=== PATIENT | female | born 1955 | race African-American/Black ===

== ENCOUNTER 2019-12-21 21:52 | Emergency (ER) | payer SELFPAY ==
[~2019-12-21] VITALS: Ht 171.4 cm; Wt 80.7 kg
[2019-12-21] MEDS ORDERED: KETOROLAC TROMETHAMINE 30 MG/ML VIAL IV STA (22:49)
--- NOTE | 2019-12-21 22:56 | Diagnostic Imaging Report ---
Exam: Left foot series, 3 views. Clinical History: Left foot swelling and pain Comparison: None. Findings: 3 views of the left foot. There is decreased bone mineralization. Negative for acute, displaced fracture or dislocation. Degenerative changes in the midfoot/hindfoot joints and medial cuneiform/first metatarsal joint. Very mild hallux valgus deformity. Posterior calcaneal enthesophyte. Mild soft tissue swelling in the dorsal aspect of the foot. Impression: 1. Mild soft tissue swelling in the dorsal aspect of the foot, without acute underlying bony abnormality. Signed by: Dr. Jimi Interiano M.D. on 12/21/2019 10:53 PM
[2019-12-21] MEDS ORDERED: KETOROLAC TROMETHAMINE 30 MG/ML VIAL ONE (22:59)
[2019-12-21] MEDS ORDERED: HYDROCODONE/APAP 5MG-325MG TAB ONE (23:00)
[2019-12-21] MEDS ORDERED: CLINDAMYCIN 600MG / 50ML 50 ML IV ONE ×2 (23:00)
[2019-12-21] MEDS ORDERED: PIPER-TAZ 3.375 GM 50 ML ONE (23:00)
[2019-12-21] MEDS ORDERED: SODIUM CHLORIDE FLUSH 10 ML SYR INJ PRN (23:00)
[2019-12-21] MEDS ORDERED: PIPER-TAZ 3.375 GM 50 ML IV ONE (23:00)
[2019-12-21] MEDS ORDERED: HYDROCODONE/APAP 5MG-325MG TAB PO ONE (23:00)
--- NOTE | 2019-12-21 23:39 | Emergency Department Note ---
History of Present Illnes History of Present Illness Chief Complaint: left foot pain History of Present Illness This is a 64 year old female. was doing well prior to this. 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 Onset (how long ago): week(s) (2) Location: left foot Quality: sharp Radiation: Reports non-radiation Severity: severe Duration (how long): week(s) Timing of current episode: constant Progression: unchanged Chronicity: new Context: Denies recent illness, Denies recent surgery, Denies recent immobilization, Denies recent travel, Denies trauma/injury, Denies new medications, Denies hx of DVT/PE, Denies non-compliance w/ medications Relieving factors: rest Exacerbating factors: movement Associated symptoms: Reports denies other symptoms Treatments prior to arrival: none Past Medical/Family History Physician Review I have reviewed the patient's past medical and family history. Any updates have been documented here. Past Medical History Recent Fever: No Clinical Suspicion of Infectio: No New/Unexplained Change in Ment: No Past Medical History: Hypertension, Diabetes Other Surgery: R-GROIN STENT Social History Smoking Cessation: Current every day smoker Alcohol Use: None Any Illegal Drug Use: No TB Exposure/Symptoms: No Physically hurt or threatened: No Other Any Pre-Existing Lines (PICC,: No Is patient up to date on immun: Yes Last Flu: 04/18 Last Pneumovax: NO Review of Systems Review of Systems Constitutional: Reports no symptoms EENTM: Reports no symptoms Cardiovascular: Reports no symptoms Respiratory: Reports no symptoms Gastrointestinal: Reports no symptoms Genitourinary: Reports no symptoms Musculoskeletal: Reports as per HPI Integumentary: Reports as per HPI Neurological: Reports no symptoms Psychological: Reports no symptoms Endocrine: Reports no symptoms Hematological/Lymphatic: Reports no symptoms Review of other systems: All other systems negative Physical Exam Related Data Triage Vital Signs Vital Signs Date Time Temp Pulse Resp B/P (MAP) Pulse Ox O2 Delivery O2 Flow Rate FiO2 12/21/19 22:12 97.8 86 18 194/77 100 Vital signs reviewed: Yes Physical Exam CONSTITUTIONAL Constitutional: Present well-developed, Present well-nourished HENT HENT: Present normocephalic, Present atraumatic, Present oropharynx clear/moist, Present nose normal HENT L/R: Present left ext ear normal, Present right ext ear normal EYES Eyes: Reports PERRL, Reports conjunctivae normal NECK Neck: Present ROM normal PULMONARY Pulmonary: Present effort normal, Present breath sounds normal CARDIOVASCULAR Cardiovascular: Present regular rhythm, Present heart sounds normal, Present capillary refill normal, Present normal rate GASTROINTESTINAL Abdominal: Present soft, Present nontender, Present bowel sounds normal GENITOURINARY Genitourinary: Present exam deferred SKIN Skin: Present warm, Present dry, Present erythema (left foot, swelling) MUSCULOSKELETAL Musculoskeletal: Present ROM normal NEUROLOGICAL Neurological: Present alert, Present oriented x 3, Present no gross motor or sensory deficits PSYCHOLOGICAL Psychological: Present mood/affect normal, Present judgement normal Results Laboratory Lab results reviewed: Yes (cbc/cmp nl EXCEPT BLOOD GLUCOSE = 275) Imaging Imaging results reviewed: Yes Impressions [place] [id number] Patient Name: ANDREA DONG MR #: [id number] : 1955 Age/Sex: 64/F Req #: [id number] Adm Physician: Ordered by: LAZARO LIVINGSTON Report #: [id number] Location: [facility] Room/Bed: Procedure: [id number] HOPD/FOOT 3 VIEW LT - HOPD Exam Date: 12/21/19 Exam Time: 2234 REPORT STATUS: Signed Exam: Left foot series, 3 views. Clinical History: Left foot swelling and pain Comparison: None. Findings: 3 views of the left foot. There is decreased bone mineralization. Negative for acute, displaced fracture or dislocation. Degenerative changes in the midfoot/hindfoot joints and medial cuneiform/first metatarsal joint. Very mild hallux valgus deformity. Posterior calcaneal enthesophyte. Mild soft tissue swelling in the dorsal aspect of the foot. Impression: 1. Mild soft tissue swelling in the dorsal aspect of the foot, without acute underlying bony abnormality. Signed by: Dr. Jennifer Pena M.D. 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 [id number] Assessment & Plan Final Impression: (1) Cellulitis of left foot (2) Hyperglycemia Depart Disposition: HOME, SELF-CARE Last Vital Signs Date Time Temp Pulse Resp B/P (MAP) Pulse Ox O2 Delivery O2 Flow Rate FiO2 12/21/19 22:12 97.8 86 18 194/77 100 Home Meds Active Scripts Tramadol Hcl (ULTRAM) 50 Mg Tablet, 50 MG PO Q4HR PRN for MODERATE PAIN (4-6), #20 TAB take after naproxen to control pain if need Prov:LAZARO LIVINGSTON 12/22/19 Ibuprofen (MOTRIN) 800 Mg Tab, 800 MG PO Q6H PRN for MODERATE PAIN (4-6), #40 Prov:LAZARO LIVINGSTON 12/22/19 Ciprofloxacin Hcl (CIPRO) 500 Mg Tablet, 500 MG PO Q12H, #28 TAB Prov:LAZARO LIVINGSTON 12/22/19 Sulfamethoxazole/Trimethoprim (BACTRIM DS TABLET) 1 Each Tablet, 1 TAB PO Q12H, #28 TAB Prov:LAZARO LIVINGSTON 12/22/19 Medications in the ED Ketorolac Tromethamine 30 mg STK-MED ONCE .ROUTE ; Start 12/21/19 at 22:59; Stop 12/21/19 at 22:54; Status DC Sodium Chloride 10 ml PRN PRN INJ IV SITE FLUSH; Start 12/21/19 at 23:00; Stop 01/20/20 at 22:59; Status UNV Piperacillin Sod/ Tazobactam Sod 50 ml @ 100 mls/hr ONCE ONCE IV ; Start 12/21/19 at 23:00; Stop 12/21/19 at 23:29; Status UNV Clindamycin Phosphate 50 ml @ 100 mls/hr ONCE ONCE IV ; Start 12/21/19 at 23:00; Stop 12/21/19 at 23:29; Status UNV Ketorolac Tromethamine 30 mg ONCE STAT IV ; Start 12/21/19 at 22:49; Stop 12/21/19 at 22:50; Status UNV Acetaminophen/ Hydrocodone Bitart 1 ea ONCE ONCE PO Last administered on 12/21/19at 23:00; Admin Dose 1 EA; Start 12/21/19 at 23:00; Stop 12/21/19 at 23:0 1; Status UNV Acetaminophen/ Hydrocodone Bitart 1 ea STK-MED ONCE .ROUTE ; Start 12/21/19 at 23:00; Stop 12/21/19 at 22:55; Status DC Clindamycin Phosphate 50 ml @ ud STK-MED ONCE IV ; Start 12/21/19 at 23:00; Stop 12/21/19 at 22:55; Status DC Piperacillin Sod/ Tazobactam Sod 50 ml @ ud STK-MED ONCE .ROUTE ; Start 12/21/19 at 23:00; Stop 12/21/19 at 22:55; Status DC LAZARO LIVINGSTON Dec 21, 2019 23:39
--- NOTE | 2019-12-22 00:30 | NUR ---
IVSL DC'D WITHOUT DIFF. NO REDNESS/SWELLING/BLEEDING TO SITE. CATH INTACT.
[2019-12-22] MEDS ORDERED: BACTRIM DS TAB1 EACH PO (01:03)
[2019-12-22] MEDS ORDERED: CIPRO500 MG PO (01:03)
[2019-12-22] MEDS ORDERED: ULTRAM50 MG PO (01:03)
[2019-12-22] MEDS ORDERED: MOTRIN800 MG PO (01:03)
[2019-12-22 01:14] VITALS: BP 174/76
== END 2019-12-22 01:14 | disposition home or self-care (01) ==
LOC: FSED 21:52
DX: M79.675 Pain in left toe(s) (principal); L03.116 Cellulitis of left lower limb; E11.65 Type 2 diabetes mellitus with hyperglycemia; I10 Essential (primary) hypertension; F17.210 Nicotine dependence, cigarettes, uncomplicated
CPT/HCPCS: 73630; 80053; 85025; 96365; 96374; 99283; J1885; J2543